=== PATIENT | female | born 1955 | race Caucasian/White ===

== ENCOUNTER 2018-06-16 05:49 | Day surgery (SDC) | payer OTHER ==
[2018-06-16] MEDS ORDERED: MIDAZOLAM 1 MG/ML 2 ML INJ (11:48)
[2018-06-16] MEDS ORDERED: FENTAnyl 50 MCG/ML VIAL (11:49)
== END 2018-06-16 15:12 | disposition home or self-care (01) ==
LOC: GIL 05:49
DX: K21.9 Gastro-esophageal reflux disease without esophagitis (principal); K29.70 Gastritis, unspecified, without bleeding
CPT/HCPCS: 43239; 88305; 88312

== ENCOUNTER 2018-07-14 07:11 | Day surgery (SDC) | payer OTHER ==
[2018-07-14] MEDS ORDERED: FENTAnyl 50 MCG/ML VIAL (09:20)
[2018-07-14] MEDS ORDERED: MIDAZOLAM 1 MG/ML 2 ML INJ (09:20)
== END 2018-07-14 10:11 | disposition home or self-care (01) ==
LOC: GIL 07:11
DX: Z12.11 Encounter for screening for malignant neoplasm of colon (principal); K64.8 Other hemorrhoids
CPT/HCPCS: 45378